=== PATIENT | female | born 1965 | race African-American/Black ===

== ENCOUNTER 2016-08-18 17:53 | Emergency (ER) | payer OTHER ==
[~2016-08-18] VITALS: Ht 165.1 cm; Wt 119.3 kg
[2016-08-19] MEDS ORDERED: NORCO 5/3251 TABLET PO (00:01)
[2016-08-19 00:21] VITALS: BP 109/72
== END 2016-08-19 00:25 | disposition home or self-care (01) ==
LOC: EME 17:53
DX: S93.401A Sprain of unspecified ligament of right ankle, initial encounter (principal); S83.91XA Sprain of unspecified site of right knee, initial encounter; M76.41 Tibial collateral bursitis [Pellegrini-Stieda], right leg; M77.31 Calcaneal spur, right foot; M19.90 Unspecified osteoarthritis, unspecified site; F17.210 Nicotine dependence, cigarettes, uncomplicated; W10.8XXA Fall (on) (from) other stairs and steps, initial encounter; Y92.838 Other recreation area as the place of occurrence of the external cause
CPT/HCPCS: 73564; 73610; 73700; 99281; 99285; J2270; J2405; J3010